=== PATIENT | male | born 1970 | race Caucasian/White ===

== ENCOUNTER 2020-12-27 17:31 | Emergency (ER) | payer OTHER, SELFPAY ==
--- NOTE | ~2020-12-27 | XR_ITS ---
EXAMINATION: XR finger 5th RT min 2V DATE: 12/27/2020 17:52 INDICATION: Laceration to the right fifth distal phalanx post blunt trauma with a rock TECHNIQUE: Dorsal palmar, lateral and 2 oblique views of the right fifth digit were obtained COMPARISON: 05/16/2019 FINDINGS: Comminuted fracture of the tuft of the right fifth distal phalanx with minimal displacement of the masoud ne fragments. There is lucency underlying the nail suggesting associated nailbed injury which would r matt this equivalent of an open/compound fracture increased risk of infection. No other fractures id entified. Joint spaces are normal. IMPRESSION: 1. Computed to fracture the right fifth distal phalanx with associated nailbed injury rendering this equivalent of an open/compound fracture. Reviewed, dictated and finalized at location A.
[2020-12-27 17:32] VITALS: BP 157/99; PULSE 105; RESP 20; TEMP 36.8; O2SAT 100
[2020-12-27] MEDS: TETANUS,DIPHTHERIA,AC PERTUSSIS ADULT (0.5 ML) BOOSTRIX IM (18:23)
[2020-12-27] MEDS: LIDOCAINE HCL 2% LOCAL INJ 20 ML VIAL (18:24)
[2020-12-27] MEDS: HYDROcodone/acetaminophen (*CRX) 5-325 MG TABLET 1 TAB PO (18:24)
[2020-12-27] MEDS: LORazepam (*CRX) 1 MG TABLET PO (18:24)
--- NOTE | 2020-12-27 18:44 | ED.GENADULT ---
HPI - General Adult General Chief complaint: Extremity Injury, Upper Stated complaint: smashed finger with rock Time Seen by Provider: 12/27/20 17:42 Source: patient and RN notes reviewed Mode of arrival: ambulatory Limitations: no limitations History of Present Illness HPI narrative: Patient is a 50-year-old male who presents with crush injury to the right pinky finger that occurred just prior to arrival had a heavy rock fall onto the finger sustained injury presents with moderate aching pain does not take anything for his symptoms denies other complaints notes his tetanus is not up-to-date Related Data Home Medications Medication Instructions Recorded Confirmed duloxetine 60 mg PO BID 12/27/20 12/27/20 Allergies Allergy/AdvReac Type Severity Reaction Status Date / Time No Known Allergies Allergy Verified 12/27/20 17:34 Review of Systems Review of Systems: All systems reviewed & are unremarkable except as noted in HPI and below PMFSH Past Medical History Medical History (Updated 12/27/20 @ 18:46 by Cornelius Mccann PA-C) Trigger finger of right hand Family History Family History Mother Family history of rheumatoid arthritis Family history of Parkinson's disease Father Family history of malignant neoplasm Social History Social History Smoking status: Never smoker Alcohol intake: current Gender identity (if verbalized by the patient): Male Exam Narrative: Exam Narrative: GENERAL: Well-appearing, well-nourished, and in no acute distress. HEAD: Normocephalic, atraumatic. EYES: PERRLA and EOMI. ENT: Nares clear, no rhinorrhea or epistaxis. Mucous membranes moist. EXTREMITIES: Normal range of motion. No edema. Bruising swelling tenderness of the right pinky finger proximal nail avulsion SKIN: Warm, dry, no rash. NEURO: No focal deficits. Alert and oriented x3. Neurovascularly intact. Capillary refill less than 2 seconds PSYCH: Normal mood and affect. Course Course Emergency Course: Patient evaluated for crush injury in the emergency department ABCs and vital signs intact and stable felt appropriate for outpatient reevaluation provided with reasons to return made aware of his case findings patient agrees with treatment plan Vital Signs Vital signs: Vital Signs Temperature 98.2 F 12/27/20 17:32 Pulse Rate 105 H 07/18/21 17:32 Respiratory Rate 20 12/27/20 17:32 Blood Pressure 157/99 H 12/27/20 17:32 Pulse Oximetry 100 12/27/20 17:32 Temperature 98.2 F 12/27/20 17:32 Pulse Rate 105 H 12/27/20 17:32 Respiratory Rate 20 12/27/20 17:32 Blood Pressure 157/99 H 12/27/20 17:32 Pulse Oximetry 100 12/27/20 17:32 Procedures Laceration Laceration 1: Date: 12/27/20 Time: 19:16 Site: upper extremity Side (If applicable): right Size (cm): 2 Description: irregular Depth: simple, single layer Local Anesthetic: lidocaine 1% Pre-repair: wound explored, irrigated and irrigated extensively ====== Skin Level ====== Skin layer closed with: nylon Size (cm): 4-0 Number of sutures: 3 ====== Subcutaneous Layer ====== ====== Muscle Layer ====== ====== Tendon Layer ====== Dressing: Patient with laceration of the nailbed that was repaired with 4-0 nylon sutures 3 total. Nail was totally avulsed with damage to the proximal nail fold. Antibiotic ointment 4 x 4 and Coban placed post procedure Medical Decision Making MDM Narrative Medical decision making narrative: Patients injury or pain is consistent with musculoskeletal etiology. No signs of neurological or vascular compromise on exam. Compartments and tisues are soft without signs of compartment syndrome. Pain is felt appropriate for further evaluation on an outpatient basis. Wound was closed in the emergency de
== END 2020-12-27 19:29 | disposition home or self-care (01) ==
PROVIDERS: Emergency Provider Emergency Medicine; PCP Family Medicine
DX: S62.636B Displaced fracture of distal phalanx of right little finger, initial encounter for open fracture (principal); W20.8XXA Other cause of strike by thrown, projected or falling object, initial encounter; Z23 Encounter for immunization
CPT/HCPCS: 12001; 73140; 90471; 90715; 99283; A9270